=== PATIENT | female | born 1975 | race Caucasian/White ===

== ENCOUNTER 2019-04-30 20:16 | Observation (INO) | payer BC ==
[~2019-04-30] VITALS: Ht 170.2 cm; Wt 72.2 kg
[2019-04-30] MEDS ORDERED: NOVOLOG (22:32)
[2019-04-30] MEDS ORDERED: ABAT250V IV (22:32)
[2019-04-30] MEDS ORDERED: MONT10T PO (22:32)
[2019-04-30] MEDS ORDERED: LEVOTHYROXINE PO (22:33)
[2019-04-30] MEDS ORDERED: Norco 10-325 T1 EACH (22:33)
[2019-04-30] MEDS ORDERED: ALBU2.5V5 INH (22:33)
[2019-04-30] MEDS ORDERED: MELO7.5 (22:33)
[2019-04-30] MEDS ORDERED: PREDNISONE (22:34)
[2019-04-30] MEDS ORDERED: NAPR500 PO (22:34)
[2019-04-30] MEDS ORDERED: FLUT1DIS2 (22:34)
[2019-04-30] MEDS ORDERED: RIZATRIPTAN10 MG SL (22:34)
[2019-05-01 00:43] LABS: Hematocrit 37.9 % (33.0-51.0); Mean Corpuscular HGB Conc 31.7 g/dL (31.5-36.5); Mean Corpuscular Volume 95 fL (80-100); Mean Platelet Volume 10.7 fL (9.1-12.4); Platelet Count 241 K/mm3 (150-400); RDW Coefficient Variation 14.6 % (11.7-14.2); RDW Standard Deviation 50.8 fL (35.1-46.3); White Blood Cell Count 12.06 K/mm3 (4.00-11.30)
[2019-05-01 00:57] LABS: International Normalized Ratio 0.97; Prothrombin Time Results 10.3 Sec (9.7-11.5)
[2019-05-01 01:02] LABS: Alanine Aminotransfer (ALT/SGP 61 U/L (12-78); Albumin, Blood 3.8 g/dL (3.4-5.0); Albumin/Globulin Ratio 1.1 (0.8-1.8); Alk Phos 86 U/L (50-136); Anion Gap 6 mmol/L (6-16); Aspartate Aminotrans (AST/SGOT 120 U/L (12-37); Bilirubin, Total 0.5 mg/dL (0.1-1.0); Blood Urea Nitrogen 23 mg/dL (8-24); Bun/Creatinine Ratio 25.9 (12.0-20.0); CO2, Blood 28 mmol/L (21-32); Calcium, Blood 8.6 mg/dL (8.5-10.1); Chloride, Blood 110 mmol/L (98-108); Creatinine, Blood 0.89 mg/dL (0.40-1.00); Globulin, Blood 3.6 g/dL (2.2-4.0); Glomerular Filtration Rate >60 (60-); Glucose, Blood 146 mg/dL (70-99); Potassium, Blood 3.6 mmol/L (3.5-5.5); Sodium, Blood 144 mmol/L (136-145); Total Protein, Blood 7.4 g/dL (6.4-8.2)
--- NOTE | 2019-05-01 02:30 | NUR ---
RECEIVED HAND OFF FROM ER NURSE USING SBAR. TRANSPORTED TO ROOM 223 VIA STRETCHER. TRANSFERED TO BED WITH STAFF ASSISTANCE, TOLERATED WELL. AAO X3, LEE, FOLLOWS ALL COMMANDS. ORIENTED TO ROOM, CALL SYSTEM, AND POC, VOICES UNDERSTANDING. RESPIRATIONS EVEN AND UNLABOREDON ROOM AIR. LUNG SOUNDS CLEAR WITH EXPORATORY WHEEZING NOTED UNTIL PT COUGHED, THEN CLEAR BREATH SOUNDS BILATERALLY. ABDOMEN SOFT AND NONDISTENDED. BOWEL SOUNDS PRESENT IN ALL QUADS. CONTINENT OF BOWEL AND BLADDER, ACTIVITY UP AD VIVIAN. DENIES NEED TO URINATE AT THIS TIME. LLE WRAPPED IN BELINDA OVER SPLINTING. GOOD CAP REFILL, DISTAL PULSES MARKED FOR EASE. RIGHT FA 18G PIV IS PATENT, BUT DIFFICUT TO FLUSH. NEW PIV TO BE SITED. GOING TO OR THIS AM PER ER STAFF, LOVENOX HELD. NS STARTED AT 75ML/HR PER MD ORDERS. RATES PAIN AT 3/10 AT THIS TIME. DENIES FURTHER NEEDS AT THIS TIME. INSULIN PUMP WITH NOVOLOG INSULIN TO LLQ. BASAL RATE OF 2 UNITS PER HOUR, 0.1 UNIT INCRIMENTAL, 1:12 CARB RATIO Q BREAKFAST, 1:20 CARB RATIO Q LUNCH AND DINNER. CONTINUOUS GLUCOSE MONITOR IN USE. BGL CURRENTLY 120. DENIES FURTHER NEEDS AT THIS TIME. ADMISSION ASSESSMENT IN PROGRESS. DENIES FURTHER NEEDS AT THIS TIME. SAFETY MEASURES IN PLACE. WILL CONTINUE TO MONITOR.
--- NOTE | 2019-05-01 07:16 | NUR ---
SHIFT SUMMARY HAS RESTED COMFORTABLY SINCE ADMIT. PAIN MANGED WITH IV PAIN MEDS. HAS BEEN NPO SINCE ADMIT FOR SX TODAY. SAFETY MEASURES IN PLACE. WILL GIVE HAND OFF TO ONCOMING SHIFT USING SBAR.
--- NOTE | 2019-05-01 17:36 | NUR ---
SUMMARY PAIN CONTROLLED WITH FENTANYL IV. PATIENT IS AWAITING SURGICAL REPAIR ON 05/02/19 AND IS AWARE OF NEED FOR NPO AFTER MIDNITE. PATIENT UP TO VOID ON BEDSIDE COMMODE WITH STANDBY ASSIST
--- NOTE | 2019-05-01 18:04 | NUR ---
SUMMARRY PATIENT HAS DECLINED SLIDING SCALE INSULIN ORDERED. PATIENT REQUESTED AND ORDERS OBTAINED THAT PATIENT MAY USE HER OWN CONTINUOUS GLUCOSE MONITORING SYSTEM AND CAN SELF ADJUST AND ADMINISTER INSULIN PER HER HOME REGIME.
[2019-05-02 04:41] LABS: BASOPHILS ABSOLUTE AUTO 0.12 K/mm3 (0.00-0.23); BASOPHILS PERCENT AUTO 2 % (0-2); EOSINOPHILS ABSOLUTE AUTO 1.15 K/mm3 (0.00-0.68); EOSINOPHILS PERCENT AUTO 15 % (0-6); Hematocrit 33.1 % (33.0-51.0); Hemoglobin 10.3 g/dL (11.5-16.0); IMMATURE GRAN ABSOLUTE AUTO 0.01 K/mm3 (0.00-0.10); IMMATURE GRAN PERCENT AUTO 0 % (0-1); LYMPHOCYTES ABSOLUTE AUTO 2.15 K/mm3 (0.84-5.20); LYMPHOCYTES PERCENT AUTO 29 % (21-46); MONOCYTES ABSOLUTE AUTO 0.72 K/mm3 (0.16-1.47); MONOCYTES PERCENT AUTO 10 % (4-13); Mean Corpuscular HGB 29.3 pg (26.0-34.0); Mean Corpuscular HGB Conc 31.1 g/dL (31.5-36.5); Mean Corpuscular Volume 94 fL (80-100); Mean Platelet Volume 10.7 fL (9.1-12.4); NEUTROPHILS ABSOLUTE AUTO 3.34 K/mm3 (1.96-9.15); NEUTROPHILS PERCENT AUTO 45 % (41-73); Platelet Count 185 K/mm3 (150-400); RDW Coefficient Variation 14.6 % (11.7-14.2); RDW Standard Deviation 50.6 fL (35.1-46.3); Red Blood Cell Count 3.51 M/mm3 (3.80-5.20); White Blood Cell Count 7.49 K/mm3 (4.00-11.30)
[2019-05-02 04:57] LABS: Anion Gap 3 mmol/L (6-16); Blood Urea Nitrogen 18 mg/dL (8-24); Bun/Creatinine Ratio 23.4 (12.0-20.0); CO2, Blood 29 mmol/L (21-32); Calcium, Blood 8.1 mg/dL (8.5-10.1); Chloride, Blood 109 mmol/L (98-108); Creatinine, Blood 0.77 mg/dL (0.40-1.00); Glomerular Filtration Rate >60 (60-); Glucose, Blood 141 mg/dL (70-99); Potassium, Blood 3.9 mmol/L (3.5-5.5); Sodium, Blood 141 mmol/L (136-145)
--- NOTE | 2019-05-02 06:54 | NUR ---
SHIFT SUMMARY: PT A&O X4. VS WNL T/O SHIFT. PAIN MANAGED WITH 50 MCG OF FENTANYL. MEDICATED TWICE THIS SHIFT. SPLINT TO LLE IN PLACE. CAP REFILL WNL. PT IS ABLE TO WIGGLE TOES. DENIES N/T. OUT OF BED TO BEDSIDE COMMODE WITH SBA. VOIDING. PT HAS BEEN NPO SINCE MIDNIGHT WITH FLUIDS INFUSING. PLAN FOR SURGERY TODAY.
--- NOTE | 2019-05-02 07:40 | NUR ---
PT REPORTS HAVING OWN INSULIN PUMP AND THAT SHE CALLIBRATED IT THIS AM. FRIEND IN ROOM.
--- NOTE | 2019-05-02 08:04 | NUR ---
ISTRATE HERE TO SEE PT. FRIEND IN ROOM.
--- NOTE | 2019-05-02 08:27 | NUR ---
PT TO HAVE PROCEDURE IN BED WITH OTHER STAFF. OTHER STAFF AWARE OF PT REQUESTING BREATHING TX BEFORE HAVING PROCEDURE. FAMILY AND FRIEND PRESENT.
--- NOTE | 2019-05-02 09:50 | NUR ---
05/02/19 0950 Colt Hughes PT TO ROOM 4 VIA BED, NECKLACE AND EARRING GIVEN TO FAMILY. RING ON-CONSENT SIGNED
--- NOTE | 2019-05-02 12:31 | NUR ---
PT BACK FROM HAVING PROCEDURE. PT ABLE TO WIGGLE TOES. SPLINT/BELINDA WRAP IN PLACE TO LLE. LLE ELEVATED ON MULT BLANKETS. PT REPORTS SORE THROAT IS ONLY COMPLAINT AT THIS TIME. FAMILY/FRIENDS IN ROOM. PT PLEASANT AND COOPERATIVE.
--- NOTE | 2019-05-02 18:00 | NUR ---
SHIFT SUMMARY PT HAD PROCEDURE TODAY. PT BEEN RESTING QUIETLY AFTER HAVING THERAPY THIS AFTERNOON. PT BEEN ASSISTED WITH ADL'S PRN. PT BEEN MED FOR PAIN PRN. PT MANAGING OWN INSULIN WITH INSULIN PUMP. FAMILY/FRIENDS BEEN IN ROOM. PT USING CALL LIGHT APPR.
--- NOTE | 2019-05-03 04:22 | NUR ---
SHIFT SUMMARY: PT POD #2 FOR RODDING OF LLE. VS WNL T/O SHIFT. PAIN MANAGED WITH OXY Q4 PER EMAR. GIVEN 50 MCG OF FENTANYL ONCE. OOB TO BSC WITH ONE ASSIST. VOIDING WELL. EXTREMITY ELEVATED ON PILLOWS WITH ICE. DRESSING CDI. RIZWANA REG DIET. DENIES N/V. FLUIDS INFUSING. INSULIN ADMINISTRATION BEING MANAGED BY PT VIA INSULIN PUMP.
[2019-05-03 05:34] LABS: BASOPHILS ABSOLUTE AUTO 0.07 K/mm3 (0.00-0.23); BASOPHILS PERCENT AUTO 1 % (0-2); EOSINOPHILS ABSOLUTE AUTO 1.04 K/mm3 (0.00-0.68); EOSINOPHILS PERCENT AUTO 14 % (0-6); Hemoglobin 9.7 g/dL (11.5-16.0); IMMATURE GRAN ABSOLUTE AUTO 0.01 K/mm3 (0.00-0.10); IMMATURE GRAN PERCENT AUTO 0 % (0-1); LYMPHOCYTES ABSOLUTE AUTO 1.81 K/mm3 (0.84-5.20); LYMPHOCYTES PERCENT AUTO 24 % (21-46); MONOCYTES PERCENT AUTO 8 % (4-13); Mean Corpuscular HGB 30.3 pg (26.0-34.0); Mean Corpuscular HGB Conc 31.3 g/dL (31.5-36.5); NEUTROPHILS ABSOLUTE AUTO 4.03 K/mm3 (1.96-9.15); NEUTROPHILS PERCENT AUTO 53 % (41-73); Platelet Count 168 K/mm3 (150-400); RDW Coefficient Variation 14.6 % (11.7-14.2); White Blood Cell Count 7.56 K/mm3 (4.00-11.30)
[2019-05-03 05:36] LABS: Mean Corpuscular Volume 97 fL (80-100)
[2019-05-03 05:50] LABS: Anion Gap 3 mmol/L (6-16); Blood Urea Nitrogen 15 mg/dL (8-24); Bun/Creatinine Ratio 16.6 (12.0-20.0); CO2, Blood 31 mmol/L (21-32); Calcium, Blood 8.5 mg/dL (8.5-10.1); Chloride, Blood 107 mmol/L (98-108); Glomerular Filtration Rate >60 (60-); Glucose, Blood 199 mg/dL (70-99); Sodium, Blood 141 mmol/L (136-145)
--- NOTE | 2019-05-03 11:03 | NUR ---
PT RECENTLY WORKING WITH THERAPY.
--- NOTE | 2019-05-03 12:01 | NUR ---
DR ISTRATE HERE TO SEE PT, FAMILY PRESENT.
--- NOTE | 2019-05-03 12:04 | NUR ---
DISCUSSED MEDS AND DIET WITH DR HANDYTRATE. REPORTS DOES NOT NEED TO BE ON FLUID RESTRICTION. SEE ORDERS.
--- NOTE | 2019-05-03 16:18 | NUR ---
DR JEFF HERE TO SEE PT. FAMILY PRESENT.
[2019-05-03] MEDS ORDERED: OXYC5 PO (17:13)
[2019-05-03] MEDS ORDERED: ASPI325EC PO (17:20)
[2019-05-03] MEDS ORDERED: METPRE4 PO (17:21)
[2019-05-03] MEDS ORDERED: ONDA4ODT MM (17:22)
[2019-05-03] MEDS ORDERED: METO10 PO (17:22)
--- NOTE | 2019-05-03 18:03 | NUR ---
PT RECENTLY DISCHARGED. PT REPORTED UNDERSTANDING OF DISCHARGE INSTRUCTIONS. PT GIVEN SCRIPT. MAY CALLED IN TO [facility] ON [address] PER PT REQ. PT EATING AND DRINKING. PAIN TOLERABLE ON PO PAIN MEDICATION. PT BEEN CLEARED BY THERAPY TO GO HOME. PT REPORTS HAVING WALKER AT HOME.
== END 2019-05-03 17:56 | disposition home or self-care (01) ==
LOC: ER 20:16 → SURS 23:54
PROVIDERS: Family Medicine; Orthopaedic Surgery; ADMIT Internal Medicine
PROC: 0QSH06Z Reposition Left Tibia with Intramedullary Internal Fixation Device, Open Approach (ICD-10-PCS; principal; 2019-05-02 07:00)
DX: S82.242A Displaced spiral fracture of shaft of left tibia, initial encounter for closed fracture (principal); S82.442A Displaced spiral fracture of shaft of left fibula, initial encounter for closed fracture; E10.9 Type 1 diabetes mellitus without complications; B44.1 Other pulmonary aspergillosis; J45.909 Unspecified asthma, uncomplicated; M06.9 Rheumatoid arthritis, unspecified; E03.9 Hypothyroidism, unspecified; Z96.41 Presence of insulin pump (external) (internal); Z88.5 Allergy status to narcotic agent; Z88.8 Allergy status to other drugs, medicaments and biological substances; Z79.899 Other long term (current) drug therapy; W19.XXXA Unspecified fall, initial encounter
CPT/HCPCS: 27752; 36415; 73502; 73590; 73610; 80048; 80053; 82947; 85025; 85027; 85610; 94760; 96365; 96372; 96374-59; 96375; 96375-59; 96376; 96376-59; 97110; 97116; 97162; 97530; 99152; 99284-25; C1713; C1769; G0378; J0690; J1170; J1200; J1650; J1885; J2250; J2370; J2405; J2704; J2765; J3010; J3480; J7030; J7509